=== PATIENT | female | born 1965 | race Caucasian/White ===

== ENCOUNTER 2019-08-02 06:05 | Day surgery (SDC) | payer BC ==
[~2019-08-02] VITALS: Ht 157.5 cm; Wt 97.3 kg
[~2019-08-02 06:05] MED LIST: LISHYD2025 PO; Levothyroxine200 MCG PO
[2019-08-02] MEDS ORDERED: Adipex-P37.5 MG PO (07:18)
== END 2019-08-02 11:05 | disposition home or self-care (01) ==
LOC: ORSCSDS 06:05
PROVIDERS: Orthopaedic Surgery
PROC: 0RNJ4ZZ Release Right Shoulder Joint, Percutaneous Endoscopic Approach (ICD-10-PCS; principal; 2019-08-02 07:30)
PROC: 0PB94ZZ Excision of Right Clavicle, Percutaneous Endoscopic Approach (ICD-10-PCS; principal; 2019-08-02 07:30)
PROC: 0LQ14ZZ Repair Right Shoulder Tendon, Percutaneous Endoscopic Approach (ICD-10-PCS; principal; 2019-08-02 07:30)
DX: M75.121 Complete rotator cuff tear or rupture of right shoulder, not specified as traumatic (principal); M75.41 Impingement syndrome of right shoulder; M19.011 Primary osteoarthritis, right shoulder; S46.101D Unspecified injury of muscle, fascia and tendon of long head of biceps, right arm, subsequent encounter; I10 Essential (primary) hypertension; E03.9 Hypothyroidism, unspecified; G47.33 Obstructive sleep apnea (adult) (pediatric); E66.01 Morbid (severe) obesity due to excess calories; Z68.39 Body mass index [BMI] 39.0-39.9, adult; Z79.899 Other long term (current) drug therapy
CPT/HCPCS: C1713; J0171; J0690; J0735; J1100; J1885; J2250; J2405; J2704; J2765; J2795; J3010; J7120

== ENCOUNTER → 2022-12-31 | Outpatient (CLI) | payer OTHER ==
[~2022-12-31] MED LIST changes: +Adipex-P37.5 MG PO
[2022-12-31 17:52] LABS: Free Thyroxine 1.91 ng/dL (0.70-1.60)
[2022-12-31 17:53] LABS: Thyroid Stimulating Hormone 0.131 uIU/mL (0.360-4.800)
== END | disposition home or self-care (01) ==
LOC: LAB 15:09 → LAB SHORT 15:09
PROVIDERS: Student in an Organized Health Care Education/Training Program
DX: E03.9 Hypothyroidism, unspecified (principal)
CPT/HCPCS: 84439; 84443

== ENCOUNTER → 2023-02-10 | Outpatient (CLI) | payer OTHER ==
[2023-02-10 17:05] LABS: Free Thyroxine 1.46 ng/dL (0.70-1.60)
[2023-02-10 17:08] LABS: Thyroid Stimulating Hormone 1.5 uIU/mL (0.360-4.800)
== END | disposition home or self-care (01) ==
LOC: LAB 14:54 → LAB SHORT 14:54
PROVIDERS: Student in an Organized Health Care Education/Training Program
DX: E03.9 Hypothyroidism, unspecified (principal)
CPT/HCPCS: 84439; 84443

== ENCOUNTER → 2024-09-17 | Outpatient (CLI) | payer OTHER ==
[2024-09-17 15:29] LABS: CHOL/HDL RATIO 3.1; Cholesterol 214 mg/dL (50-200); HDL Cholesterol 68 mg/dL (>39); Low Density Lipoprotein Chol 133 mg/dL (0-110); Triglycerides 64 mg/dL (30-160); Very Low Density Lipoprot Chol 12 mg/dL (6-32)
== END | disposition home or self-care (01) ==
LOC: LAB SHORT 12:48
PROVIDERS: Student in an Organized Health Care Education/Training Program
DX: E03.9 Hypothyroidism, unspecified (principal)
CPT/HCPCS: 80061; 84443

== ENCOUNTER → 2024-11-24 | Outpatient (CLI) | payer OTHER | END | disposition home or self-care (01) | LOC: LAB SHORT 11:50 | DX: E03.9 Hypothyroidism, unspecified (principal) | CPT/HCPCS: 83036; 84443 ==